=== PATIENT | female | born 1950 | race Two or more races ===

== ENCOUNTER 2022-03-20 19:20 | Emergency (ER) | payer OTHER, MEDICAID ==
[~2022-03-20] VITALS: Ht 167.6 cm; Wt 72.6 kg
[2022-03-20] MEDS ORDERED: SODIUM CHLORIDE 0.9% 500 ML IV ONE (20:15)
[2022-03-20] MEDS ORDERED: LORazepam 2MG/ML-1ML VIAL IV ONE (20:15)
[2022-03-20] MEDS ORDERED: NITROGLYCERIN 0.4 MG SL TAB SL ONE (20:15)
[2022-03-20] MEDS ORDERED: ASPirin 325 MG TAB PO ONE (20:15)
[2022-03-20 20:52] LABS: Basophils # (auto) 0.2 10 ^3/uL (0-0.2); Basophils % (auto) 2.7 % (0.0-2.0); Eosinophils # (auto) 0.1 10 ^3/uL (0-0.8); Eosinophils % (auto) 0.8 % (0.0-7.0); Hematocrit 34.6 % (36.0-46.0); Hemoglobin 11.7 g/dL (12.2-16.2); Lymphocytes # (auto) 1.6 10 ^3/uL (0.4-5.4); Lymphocytes % (auto) 22.2 % (10.0-50.0); Mean Corpuscular Hemoglobin 30.6 pg (28.0-32.0); Mean Corpuscular Volume 90.2 fL (80.0-100.0); Monocytes % (auto) 13.8 % (0.0-12.0); Neutrophils # (auto) 4.5 10 ^3/uL (1.6-8.6); Neutrophils % (auto) 60.5 % (37.0-80.0); Red Blood Cells 3.83 10^6/uL (4.0-5.20); Red Cell Distribution Width 18.8 % (11.8-14.3); White Blood Cell 7.4 10^3/uL (4.4-10.8)
[2022-03-20 21:03] LABS: Albumin 3.6 g/dL (3.4-5.0); Calcium 9.1 mg/dL (8.5-10.1); Potassium 4.4 mmol/L (3.5-5.1)
[2022-03-20 21:06] LABS: Bilirubin, Total 0.8 mg/dL (0.2-1.0)
[2022-03-21 04:00] VITALS: BP 154/84
== END 2022-03-21 04:23 | disposition home or self-care (01) ==
LOC: EDBD 19:20 → ER 19:20
DX: F41.0 Panic disorder [episodic paroxysmal anxiety] (principal); E78.5 Hyperlipidemia, unspecified; I10 Essential (primary) hypertension; Z20.822 Contact with and (suspected) exposure to COVID-19
CPT/HCPCS: 36415; 71045; 80053; 83735; 83880; 84443; 84484; 85025; 87426; 93005; 96361; 96374; 96375; 99285; J2060; J7040